=== PATIENT | female | born 1985 | race American Indian/Alaskan Native ===

== ENCOUNTER 2021-10-30 16:42 | Inpatient (IN) | payer BC ==
[2021-10-30] MEDS ORDERED: OXYTOCIN DRIP 30,000 MILLIUNITS/500 ML BAG IV ONE (18:59)
--- NOTE | 2021-10-30 19:02 | History and Physical Report ---
History of Present Illness Date of examination: 10/30/21 Chief complaint: I'm in labor History of present illness: Pt is a 36 year old who presents in active labor at 37.1 weeks with EDC . Pt has had an uncomplicated course. She is GBS negative. She has been in care since 11 weeks. Past History Past Medical History: no pertinent history Past Surgical History: no surgical history Family/Genetic History: none Social history: single - Obstetrical History Expected Date of Delivery: 11/17/21 Actual Gestation: 37 Week(s) 5 Day(s) : 3 Para: 2 Number of Living Children: 2 Medications and Allergies Allergies Allergy/AdvReac Type Severity Reaction Status Date / Time No Known Allergies Allergy Verified 09/25/15 15:07 Home Medications Medication Instructions Recorded Confirmed Last Taken Type HYDROcodone/APAP 5-325 [[place] 1 each PO Q6HR PRN #15 tablet 10/30/21 Unknown Rx 5/325] Ibuprofen [Motrin] 800 mg PO Q8HR PRN #40 tablet 10/30/21 Unknown Rx Review of Systems All systems: negative Constitutional: fatigue Eyes: deferred Ears, nose, mouth and throat: deferred Breasts: deferred Genitourinary: leakage of fluid, contractions Rectal Exam: deferred - Vital Signs Vital signs: Vital Signs Temp Pulse Resp BP 98.0 F 120 H 16 135/86 10/30/21 17:05 10/30/21 17:05 10/30/21 17:05 10/30/21 17:05 Temp Pulse Resp BP Pulse Ox 98.0 F 107 H 16 135/86 98 10/30/21 17:05 10/30/21 18:44 10/30/21 17:05 10/30/21 17:05 10/30/21 18:44 - Physical Exam Breasts: Positive: deferred Cardiovascular: Regular rate, Normal S1, Normal S2 Lungs: Positive: Clear to auscultation, Normal air movement Abdomen: Positive: normal appearance, soft, normal bowel sounds. Negative: distention, tenderness Genitourinary (Female): Positive: normal external genitalia, normal perenium Vulva: both: normal Vagina: Positive: normal moisture. Negative: discharge Cervix: Negative: lesion, discharge Uterus: Positive: normal size, normal contour Adnexa: both: normal Anus/Rectum: Positive: normal perianal skin, heme negative. Negative: rectal mass, hemorrhoids Extremities: Deep Tendon Reflex Grade: Normal +2 - Obstetrical FHR: auscultation normal Uterine Contraction Monitor Mode: Palpation Cervical Dilatation: 8 Cervical Effacement Percentage: 90 station: 0 Uterine Contraction Pattern: Regular Uterine Tone Measurement Phase: Contraction Uterine Contraction Intensity: Moderate Results Result Diagrams: 10/31/21 10:29 All other labs normal. Assessment and Plan IUP at 37 weeks in active labor. Admit for L&D. Anticipate precipitous delivery.
[2021-10-30] MEDS ORDERED: MINERAL OIL 30 ML ORAL LIQD ONE (19:07)
[2021-10-30] MEDS ORDERED: fentaNYL 100 MCG/2 ML INJ ONE (19:25)
[2021-10-30] MEDS ORDERED: fentaNYL 100 MCG/2 ML INJ IV PRN (19:37)
[2021-10-30] MEDS ORDERED: CARBOPROST TROMETHAMINE 250 MCG/1 ML INJ IM PRN (19:37)
[2021-10-30] MEDS ORDERED: ACETAMINOPHEN 325 MG TAB PO PRN (19:37)
[2021-10-30] MEDS ORDERED: ePHEDrine SULFATE 50 MG/1 ML INJ IV PRN (19:37)
[2021-10-30] MEDS ORDERED: miSOPROStol 200 MCG TAB PR PRN (19:37)
[2021-10-30] MEDS ORDERED: LOPERAMIDE 2 MG CAP PO PRN (19:37)
[2021-10-30] MEDS ORDERED: OXYTOCIN 10 UNIT/1 ML INJ IM PRN (19:37)
[2021-10-30] MEDS ORDERED: METHYLERGONOVINE MALEATE 0.2 MG/ML VIAL IM PRN (19:37)
[2021-10-30] MEDS ORDERED: TERBUTALINE 1 MG/1 ML INJ SUB-Q PRN (19:37)
[2021-10-30] MEDS ORDERED: BUTORPHANOL 2 MG/1 ML INJ IV PRN (19:37)
[2021-10-30] MEDS ORDERED: MINERAL OIL 30 ML ORAL LIQD PO PRN (19:37)
--- NOTE | 2021-10-30 19:44 | Procedure Note ---
OB Delivery Note - Vaginal Delivery presentation: vertex Delivery position: OA Intrapartum events: precipitous labor- <3hr Delivery augmentation: rupture of membranes Delivery monitor: external FHT, external uterine Route of delivery: Delivery placenta: spontaneous Delivery cord: 3 umbilical vessels Episiotomy: none Delivery laceration: none Anesthesia: none Delivery comments: Viable female delivered over intact perineum with no nuchal cord. Mouth and nose suctioned on the field. had spontaneous cry. Placenta delivered spontaneously and intact with 3vc. No lacerations. EXcellent hemostasis. Pt tolerated procedure well. - Infant A at 1 minute: 8 at 5 minutes: 9 Infant Gender: Female (6 pounds 3 ounces)
[2021-10-30] MEDS ORDERED: LACTATED RINGERS 1,000 ML IV SCH (19:45)
[2021-10-30] MEDS ORDERED: OXYTOCIN DRIP 30 UNITS/500 ML BAG IV SCH (20:00)
[2021-10-30 20:32] LABS: Hematocrit 32.9 % (30.3-42.9); Hemoglobin 10.7 gm/dl (10.1-14.3); Mean Corpuscular HGB Conc 33 % (30-34); Mean Corpuscular Volume 83 fl (79-97); Platelet Count 234 K/mm3 (140-440); Red Blood Count 3.97 M/mm3 (3.65-5.03); Red Cell Distribution Width 16.1 % (13.2-15.2)
[2021-10-30] MEDS ORDERED: diphenhydrAMINE 25 MG CAP PO PRN (22:21)
[2021-10-30] MEDS ORDERED: LANOLIN/ZINC/DIMETHICONE (LANSINOH) 7 GM TP PRN (22:21)
[2021-10-30] MEDS ORDERED: ONDANSETRON 4 MG/2 ML INJ IV PRN (22:21)
[2021-10-30] MEDS ORDERED: PROMETHAZINE 25 MG RECT SUPP PR PRN (22:21)
[2021-10-30] MEDS ORDERED: HYDROcodone/ACETAMINOPHEN 5-325 MG TAB PO PRN (22:21)
[2021-10-30] MEDS ORDERED: PROMETHAZINE 25 MG TAB PO PRN (22:21)
[2021-10-30] MEDS ORDERED: MAGNESIUM HYDROXIDE (MOM) ORAL LIQD UDC PO PRN (22:21)
[2021-10-30] MEDS ORDERED: WITCH HAZEL/ GLYCERIN PAD TP PRN (22:21)
[2021-10-30] MEDS: IBUPROFEN 600 MG TAB PO SCH (22:30)
[2021-10-31] MEDS: IBUPROFEN 600 MG TAB PO SCH ×3 (05:43→18:00)
[2021-10-31] MEDS: PRENATAL VIT27-FE FUMARATE-FOLIC ACID VIT TAB PO SCH (10:08)
[2021-10-31] MEDS: DOCUSATE SODIUM 100 MG CAP PO SCH (10:08)
[2021-10-31 11:39] LABS: Hematocrit 32.2 % (30.3-42.9); Hemoglobin 10.2 gm/dl (10.1-14.3)
[2021-11-01] MEDS: DOCUSATE SODIUM 100 MG CAP PO SCH ×2 (00:02→09:19)
[2021-11-01] MEDS: IBUPROFEN 600 MG TAB PO SCH ×3 (00:02→11:31)
--- NOTE | 2021-11-01 09:11 | Discharge Summary ---
Providers - Providers Date of Admission: 10/30/21 19:37 Date of discharge: 11/01/21 Attending physician: VINCE SIM Primary care physician: VINCE SIM Hospitalization Reason for admission: active labor, section Episiotomy: none Laceration: none Other procedures: none complications: none Discharge diagnosis: IUP at term delivered Reserve baby: female Hospital course: unremarkable Condition at discharge: Good Disposition: 01 HOME / SELF CARE / HOMELESS Plan - Discharge Medications Prescriptions: Ibuprofen [Motrin] 800 mg PO Q8HR PRN #40 tablet PRN Reason: Pain, Mild (1-3) HYDROcodone/APAP 5-325 [[place] 5/325] 1 each PO Q6HR PRN #15 tablet PRN Reason: Pain - Provider Discharge Summary Activity: routine, no sex for 6 weeks, no heavy lifting 4 weeks, no strenuous exercise Diet: routine Instructions: routine Additional instructions: [] Smoking cessation referral if applicable(refer to patient education folder for contact #) [] Refer to [facility]'s [facility] Booklet Call your doctor immediately for: * Fever > 100.5 * Heavy vaginal bleeding ( >1 pad per hour) * Severe persistent headache * Shortness of breath * Reddened, hot, painful area to leg or breast * Drainage or odor from incision. * Keep incision clean and dry at all times and follow doctor's instructions regarding bathing/showering - Follow up plan Follow up: VINCE SIM MD [Primary Care Provider] - 14 Days
[2021-11-01] MEDS: PRENATAL VIT27-FE FUMARATE-FOLIC ACID VIT TAB PO SCH (09:19)
[2021-11-01 12:23] VITALS: BP 125/79
== END 2021-11-01 13:15 | disposition home or self-care (01) | DRG 807 ==
LOC: TRG 16:42 → APU 16:44 → LD 17:28 → TRG 19:37 → OB 23:59
PROVIDERS: ADMIT Obstetrics & Gynecology; ATTEND Obstetrics & Gynecology
PROC: 10E0XZZ Delivery of Products of Conception, External Approach (ICD-10-PCS; principal; 2021-10-30)
PROC: 10907ZC Drainage of Amniotic Fluid, Therapeutic from Products of Conception, Via Natural or Artificial Opening (ICD-10-PCS; 2021-10-30)
DX: O62.3 Precipitate labor (principal); Z37.0 Single live birth; Z3A.37 37 weeks gestation of pregnancy; Z20.822 Contact with and (suspected) exposure to COVID-19
CPT/HCPCS: 36415; 59025; 85014; 85018; 85027; 86850; 86900; 86901; 87806; G0378; J3010; U0003